=== PATIENT | male | born 1970 | race Caucasian/White ===

== ENCOUNTER → 2016-06-03 | Day surgery (SDC) | payer BC ==
[~2016-06-03] VITALS: Ht 170.1 cm; Wt 93.0 kg
[2016-06-03] VITALS (8 sets, daily range): BP systolic 133–153; BP diastolic 82–97
[~2016-06-03] MED LIST: AMLODIPINE-ATO1 EAC1 PO; BIAXIN500 MG PO; CLARITIN10 MG PO; HYDROCODONE BIT1 T11 PO; LIPITOR20 MG PO; OMEPRAZOLE40 MG PO
--- NOTE | ~2016-06-03 | O ---
[place], [place] OPERATIVE NOTE NAME: YADIEL LEWIS WADENA CLINICT #: [id number] UNIT #: [id number] ROOM: DOCTOR: TAL TOMPKINS MD BIRTHDATE: [birth year] DOS: 06/03/2016 PREOPERATIVE DIAGNOSIS: Thrombosed hemorrhoids. POSTOPERATIVE DIAGNOSIS: External thrombosed hemorrhoids 3 of them, one left anterior is lately bleeding due to mucosal ulceration. DESCRIPTION OF PROCEDURE: Under LMA patient placed in lithotomy position and prepped and draped. The large thrombosed hemorrhoid with mucosal ulceration is picked up, completely excised and after hemostasis that area was closed with 3-0 chromic catgut. Similarly, the left posterior and right posterior large hemorrhoids felt like they had clots also. They were incised and large clots were removed and both were closed with 3-0 chromic catgut. There is no bleeding, small piece of Surgicel inserted. Dressing applied. The patient tolerated the procedure well and was sent to room. Tal Tompkins MD CM:OPRECORD:OPERATIVE NOTE [id number] TAL TOMPKINS MD 06/07/16 1329 interface
== END | disposition home or self-care (01) ==
LOC: SDC 03:02
DX: K64.5 Perianal venous thrombosis (principal); E78.00 Pure hypercholesterolemia, unspecified; K21.9 Gastro-esophageal reflux disease without esophagitis; I10 Essential (primary) hypertension; Z82.49 Family history of ischemic heart disease and other diseases of the circulatory system; Z82.3 Family history of stroke

== ENCOUNTER → 2021-06-24 | Day surgery (SDC) | payer BC ==
[2021-06-21 13:52] VITALS: BP 125/87
[~2021-06-24] VITALS: Ht 170.1 cm; Wt 93.0 kg
[~2021-06-24] MED LIST changes: +COLACE100 MG PO; +PERCOCET 5-3251 EACH PO; +ZOFRAN4 MG PO
[2021-06-24 08:00] VITALS: BP 146/65
[2021-06-24 10:10] VITALS: BP 124/82
[2021-06-24 10:25] VITALS: BP 116/74
[2021-06-24 10:40] VITALS: BP 122/75
[2021-06-24 10:55] VITALS: BP 120/77
== END | disposition home or self-care (01) ==
LOC: SDC 05-25 13:15
PROVIDERS: ATTEND Surgery
DX: K42.9 Umbilical hernia without obstruction or gangrene (principal); K40.20 Bilateral inguinal hernia, without obstruction or gangrene, not specified as recurrent; I10 Essential (primary) hypertension; K21.9 Gastro-esophageal reflux disease without esophagitis; E78.00 Pure hypercholesterolemia, unspecified; Z20.822 Contact with and (suspected) exposure to COVID-19; Z79.899 Other long term (current) drug therapy

== ENCOUNTER → 2023-12-25 | Outpatient (CLI) | payer OTHER ==
[2023-12-25 17:36] LABS: BASO # 0.1 10*3/uL (0.0-0.1); BASO % 0.9 % (0.0-1.0); EOS # 0.2 10*3/uL (0.0-0.4); EOS % 2.1 % (1.0-4.0); HEMATOCRIT 42.4 % (42.0-52.0); LYMPH # 1.5 10*3/uL (1.3-4.4); LYMPH % 18.6 % (27.0-41.0); MEAN CELL VOLUME 81.5 fl (80.0-94.0); MEAN CORPUSCULAR HGB 26.9 pg (27.0-31.0); MEAN PLATELET VOLUME 9.3 fl (9.6-12.3); MONO # 0.7 10*3/uL (0.1-1.0); MONO % 7.9 % (3.0-9.0); NEUT # 5.8 10*3/uL (2.3-7.9); PLATELET COUNT AUTOMATED 291 10*3/uL (130-400); WHITE BLOOD COUNT 8.2 10*3/uL (4.8-10.8)
[2023-12-25 17:59] LABS: ALKALINE PHOSPHATASE 116 U/L (46-116); BUN 13 mg/dl (9-23); CHLORIDE 105 mmol/L (98-107); CHOLESTEROL 136 mg/dL (<200); LDL CHOLESTEROL 66 mg/dL (9-159); POTASSIUM 4.3 mmol/L (3.4-5.1); SGPT/ALT 34 U/L (5-49); TOTAL PROTEIN 7.9 gm/dL (6.0-8.0); TRIGLYCERIDES 90 mg/dl (<150)
== END | disposition home or self-care (01) ==
LOC: LAB 17:20
PROVIDERS: ATTEND Family Medicine
DX: Z12.5 Encounter for screening for malignant neoplasm of prostate (principal); I10 Essential (primary) hypertension